=== PATIENT | male | born 1990 | race Caucasian/White ===

== ENCOUNTER 2016-10-26 06:58 | Day surgery (SDC) | payer BC, SELFPAY ==
[~2016-10-26 06:58] MED LIST: IBUPROFEN200 M2 PO
== END 2016-10-26 15:00 ==
LOC: SRG 06:58 → SHSB 07:02 → ORW 09:23 → PACU 10:06 → SHSB 11:00
PROC: 0DTJ4ZZ Resection of Appendix, Percutaneous Endoscopic Approach (ICD-10-PCS; principal; 2016-10-26)
DX: K36 Other appendicitis (principal); Z98.818 Other dental procedure status; Z79.899 Other long term (current) drug therapy
CPT/HCPCS: C1713; J0690; J1885; J2270; J2405; J2550; J7030